=== PATIENT | male | born 1985 | race Caucasian/White ===

== ENCOUNTER 2021-12-28 16:17 | Emergency (ER) | payer OTHER ==
[~2021-12-28] VITALS: Ht 185 cm; Wt 75.0 kg
--- NOTE | 2021-12-28 16:38 | ED Chest Pain ---
General Chief Complaint: Chest Pain Stated Complaint: CHEST PAIN Nursing Triage Note: pt states chest pain and into lt arm, states family hx of heart disease. pt was coming home from work this a.m. after moving dog food bags at work last night Source: patient Exam Limitations: no limitations History of Present Illness Date Seen by Provider: Dec 28, 2021 Time Seen by Provider: 16:34 Initial Comments To ER with reports of left-sided chest pain sharp in nature radiates down the left arm. It is worsened by deep breathing. He took 2 aspirin at home about an hour ago and that did help with the pain though he still rates it at 8 out of 10. 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 He noticed this pain about 6 AM this morning on his way home from work.'s been constant since then. He denies any cough. He does have a little shortness of breath. He does smoke cigarettes. He has a strong family history of cardiac disease stating that his brother had CO with stenting at the age of 35. 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 NTG SL GLOST PLACER: No Allergies and Home Medications Allergies Coded Allergies: No Known Drug Allergies (Unverified , 12/28/21) Patient Home Medication List Home Medication List Reviewed: Yes Review of Systems Review of Systems Constitutional: see HPI EENTM: No Symptoms Reported Respiratory: No Symptoms Reported Cardiovascular: No Symptoms Reported Gastrointestinal: No Symptoms Reported Genitourinary: No Symptoms Reported Musculoskeletal: no symptoms reported Skin: no symptoms reported Psychiatric/Neurological: No Symptoms Reported Endocrine: No Symptoms Reported Hematologic/Lymphatic: No Symptoms Reported Physical Exam Vital Signs Vital Signs - First Documented 12/28/21 16:30 Temp 36.5 Pulse 83 Resp 18 B/P (MAP) 127/76 (93) Pulse Ox 98 O2 Delivery Room Air Capillary Refill : Less Than 3 Seconds Height, Weight, BMI Height: '" Weight: lbs. oz. kg; 21.00 BMI Method: General Appearance: No Apparent Distress, WD/WN, Other (EKG shows sinus rhythm at [address] some diffuse mild [address] segment elevation in the anterior lateral and inferior leads.) HEENT: PERRL/EOMI, TMs Normal Neck: Full Range of Motion, Normal Inspection Respiratory: No Accessory Muscle Use, No Respiratory Distress Cardiovascular: Regular Rate, Rhythm, Normal Peripheral Pulses Gastrointestinal: Normal Bowel Sounds, Non Tender, Soft Extremity: Normal Capillary Refill, Normal Inspection Neurologic/Psychiatric: Alert, Oriented x3 Skin: Normal Color, Warm/Dry Progress/Results/Core Measures Results/Orders Lab Results Laboratory Tests Test 12/28/21 16:35 Range/Units White Blood Count 7.7 4.3-11.0 10^3/uL Red Blood Count 5.61 H 4.30-5.52 10^6/uL Hemoglobin 16.7 13.3-17.7 g/dL Hematocrit 49 40-54 % Mean Corpuscular Volume 87 80-99 fL Mean Corpuscular Hemoglobin 30 25-34 pg Mean Corpuscular Hemoglobin Concent 34 32-36 g/dL Red Cell Distribution Width 11.9 10.0-14.5 % Platelet Count 197 130-400 10^3/uL Mean Platelet Volume 11.4 9.0-12.2 fL Immature Granulocyte % (Auto) 0 % Neutrophils (%) (Auto) 58 42-75 % Lymphocytes (%) (Auto) 24 12-44 % Monocytes (%) (Auto) 10 0-12 % Eosinophils (%) (Auto) 7 0-10 % Basophils (%) (Auto) 1 0-10 % Neutrophils # (Auto) 4.5 1.8-7.8 10^3/uL Lymphocytes # (Auto) 1.8 1.0-4.0 10^3/uL Monocytes # (Auto) 0.8 0.0-1.0 10^3/uL Eosinophils # (Auto) 0.6 H 0.0-0.3 10^3/uL Basophils # (Auto) 0.1 0.0-0.1 10^3/uL Immature Granulocyte # (Auto) 0.0 0.0-0.1 10^3/uL Sodium Level 140 135-145 MMOL/L Potassium Level 4.0 3.6-5.0 MMOL/L Chloride Level 107 98-107 MMOL/L Carbon Dioxide Level 23 21-32 MMOL/L Anion Gap 10 5-14 MMOL/L Blood Urea Nitrogen 12 7-18 MG/DL Creatinine 0.83 0.60-1.30 MG/DL Estimat Glomerular Filtration Rate 116 BUN/Creatinine Ratio 14 Glucose Level 94 70-105 MG/DL Calcium Level 9.1 8.5-10.1 MG/DL Corrected Calcium 9.0 8.5-10.1 MG/DL Magnesium Level 2.1 1.6-2.4 MG/DL Total Bilirubin 0.9 0.1-1.0 MG/DL Aspartate Amino Transf (AST/SGOT) 15 5-34 U/L Alanine Aminotransferase (ALT/SGPT) 20 0-55 U/L Alkaline Phosphatase 73 40-136 U/L Myoglobin 33.3 10.0-92.0 NG/ML Troponin I < 0.028 <0.028 NG/ML B-Type Natriuretic Peptide < 10.0 <100.0 PG/ML Total Protein 7.4 6.4-8.2 GM/DL Albumin 4.1 3.2-4.5 GM/DL My Orders Orders - RANDI EASLEY [employer] Cbc With Automated Diff (12/28/21 16:32) Magnesium (12/28/21 16:32) Chest 1 View, Ap/Pa Only (12/28/21 16:32) Ekg Tracing (12/28/21 16:32) Comprehensive Metabolic Panel (12/28/21 16:32) Myoglobin Serum (12/28/21 16:32) Protime With Inr (12/28/21 16:32) Partial Thromboplastin Time (12/28/21 16:32) O2 (12/28/21 16:32) Monitor-Rhythm Ecg Trace Only (12/28/21 16:32) Lipid Panel (12/29/21 06:00) Ed Iv/Invasive Line Start (12/28/21 16:32) Bnp Foster (12/28/21 16:32) Troponin I Eveline (12/28/21 16:32) Ketorolac Injection (Toradol Injection) (12/28/21 16:45) Fibrin Degradation Products (12/28/21 16:35) Medications Given in ED Current Medications Medications Dose Ordered Sig/Lyudmila Route Start Time Stop Time Status Last Admin Dose Admin Ketorolac Tromethamine 15 mg ONCE ONCE IVP 12/28/21 16:45 12/28/21 16:46 DC 12/28/21 16:47 15 MG Vital Signs/I&O 12/28/21 12/28/21 16:30 16:47 Temp 36.5 36.5 Pulse 83 Resp 18 B/P (MAP) 127/76 (93) Pulse Ox 98 O2 Delivery Room Air Blood Pressure Mean: 93 Departure Impression Primary Impression: Chest pain Disposition: HOME, SELF-CARE Condition: Stable Departure-Patient Inst. Decision time for Depature: 17:34 Referrals: NEEL BRINK MD FACP [facility] IDALIA HORN MD, DAVID L JR, Patient Instructions: Chest Pain (DC) Add. Discharge Instructions: 1. Call heart doctor of your choosing. The local ones have been listed. Make an appointment to be seen. Return to ER for any concerns or worsening. All discharge instructions reviewed with patient and/or family. Voiced understanding. Work/School Note: Work Release Form Date Seen in the Emergency Department: Dec 28, 2021 Return to Work: Dec 29, 2021 RANDI EASLEY APRN Dec 28, 2021 16:38
[2021-12-28] MEDS ORDERED: KETOROLAC 30 MG/ML VIAL IVP ONE (16:45)
[2021-12-28 16:48] LABS: BASOPHILS # (AUTO) 0.1 10^3/uL (0.0-0.1); BASOPHILS % (AUTO) 1 % (0-10); EOSINOPHILS # (AUTO) 0.6 10^3/uL (0.0-0.3); EOSINOPHILS % (AUTO) 7 % (0-10); HEMATOCRIT 49 % (40-54); HEMOGLOBIN 16.7 g/dL (13.3-17.7); LYMPHOCYTES # (AUTO) 1.8 10^3/uL (1.0-4.0); LYMPHOCYTES % (AUTO) 24 % (12-44); MEAN CORPUSCULAR HEMOGLOBIN 30 pg (25-34); MEAN CORPUSCULAR HGB CONC 34 g/dL (32-36); MEAN CORPUSCULAR VOLUME 87 fL (80-99); MEAN PLATELET VOLUME 11.4 fL (9.0-12.2); MONOCYTES # (AUTO) 0.8 10^3/uL (0.0-1.0); MONOCYTES % (AUTO) 10 % (0-12); NEUTROPHILS # (AUTO) 4.5 10^3/uL (1.8-7.8); NEUTROPHILS % (AUTO) 58 % (42-75); PLATELET COUNT 197 10^3/uL (130-400); WHITE BLOOD COUNT 7.7 10^3/uL (4.3-11.0)
[2021-12-28 16:58] LABS: ALBUMIN 4.1 GM/DL (3.2-4.5)
[2021-12-28 16:59] LABS: CALCIUM 9.1 MG/DL (8.5-10.1)
[2021-12-28 17:00] LABS: TOTAL PROTEIN 7.4 GM/DL (6.4-8.2)
[2021-12-28 17:02] LABS: BILIRUBIN,TOTAL 0.9 MG/DL (0.1-1.0)
[2021-12-28 17:04] LABS: CREATININE SERUM 0.83 MG/DL (0.60-1.30)
[2021-12-28 17:07] LABS: MAGNESIUM 2.1 MG/DL (1.6-2.4)
--- NOTE | 2021-12-28 17:08 | Diagnostic Imaging Report ---
HISTORY: Chest pain COMPARISON: None TECHNIQUE: Frontal view of the chest. FINDINGS: Lung volumes are mildly large. There is no consolidation. There is no pleural effusion or pneumothorax. The cardiac silhouette is normal in size. IMPRESSION: 1. Large lung volumes with no acute pulmonary abnormality seen. Dictated by: Dictated on workstation # [id number]
[2021-12-28 17:34] LABS: FIBRIN DEGRADATION PRODUCTS <= 0.27 UG/ML (0.00-0.49); INR 0.9 (0.8-1.4); PARTIAL THROMBOPLASTIN TIME 32 SEC (24-35); PROTHROMBIN TIME PATIENT 12.9 SEC (12.2-14.7)
[2021-12-28 17:47] VITALS: BP 113/80
== END 2021-12-28 17:47 | disposition home or self-care (01) ==
LOC: ER 16:27
DX: R07.89 Other chest pain (principal); F17.210 Nicotine dependence, cigarettes, uncomplicated
CPT/HCPCS: 36415; 71045; 80053; 83735; 83874; 83880; 84484; 85025; 85379; 85610; 85730; 86141; 93005; 93041